=== PATIENT | male | born 1940 | race Caucasian/White ===

== ENCOUNTER 2023-06-22 20:42 | Emergency (ER) | payer MEDICARE, OTHER, SELFPAY ==
--- NOTE | 2023-06-22 20:52 | ED.GENMED ---
History of Present Illness
General
Chief Complaint: Cardiac Symptoms
Source: ambulance crew and assisted
Exam Limitations: none
Time Seen by Provider: 06/22/23 20:51
Nursing documentation reviewed up to this point in time: agreed with
History of Present Illness
History of Present Illness:
83-year-old male presents emergency department in cardiac arrest. He was found unresponsive at assisted. EMS shocked in V-fib 4 times and gave 10 rounds of epinephrine during ACLS and CPR, and also intubated. Patient arrives with CPR in
progress, last rhythm asystole. Lidocaine 100 mg IO given.
Phy Exam
Physical Exam
Physical Exam:
CODE EXAM:
VITAL SIGNS: No palpable blood pressure, no pulses, no respiration.
GENERAL EXAM: Mottled
EYES: Pupils fixed
ENT: Patient intubated
NECK: No venous distention
RESPIRATORY: Equal breath sounds
CARDIAC: Absent heart sounds, automatic chest compression device in place
VASCULAR: Absent pulses
ABDOMEN: Soft no masses
GUAIAC: Not done
MUSCULOSKELETAL: Unable to evaluate strength
EXTREMITIES: No edema or contractures, IO right proximal tibia
SKIN: No rash
PSYCH: Mood, affect unable to evaluate
Course
Orders/Labs/Results
Orders:
Orders
06/22/23 20:43
EPINEPHrine [Adrenalin 1 mg/10 ml] 1 mg .ROUTE .STK-MED ONE
Vital Signs
Initial and Last Documented VS:
Initial Vital Signs
Pulse Resp Pulse Ox
0 0 0
06/22/23 20:43 06/22/23 20:43 06/22/23 20:43
Last Documented Vital Signs
Pulse Resp Pulse Ox
0 0 0
06/22/23 20:43 06/22/23 20:43 06/22/23 20:43
MDM/Problems Addressed
Differential Diagnosis Includes:
Arrhythmia, cardiac arrest, ACS
MDM/Problems Addressed:
83-year-old male with cardiac arrest, limited medical information available. Patient was in ventricular fibrillation and then asystole. Attempting to find contact information for daughter. [employer] contacted.
*Pulse Oximetry
Patient hypoxic: yes
*EKG
Interpreted by ED Provider?: NA
*Treasury Representative Interpretation
Rate: other (asystole)
Interpretation: abnormal
Heart Rate: 0
Rhythm: other (asystole)
*Critical Care Note
Total Time (30-74mins, 75-104mins- exclusive of procedures): Not Applicable
Patient Management
Escalation/DeEscalation of care consider admission/obs:
pt
ED Attending Note
-
Portions of this chart may have been created with voice recognition software.� Occasional wrong word or��sound alike� substitutions may have occurred due to the inherent limitations of voice recognition software.
Discharge Plan
Departure
Patient Disposition:
Date of Disposition: 06/22/23
Time of Disposition: 21:06
Patient with high blood pressure during this ER visit?: No
Discharge Problem:
Cardiac arrest
Interventions
Interventions:
*Risk Screen - Suicide Last Done: 06/22/23 20:43
*Neglect/Abuse Screening Last Done: 06/22/23 20:43
*Nursing Disposition Last Done: 06/22/23 23:40
Discharge Date and Time
Print Language: GRENADIAN
--- NOTE | 2023-06-22 20:57 | EDRN ---
2035 ED charge called respiratory prior to pt. arrival
2042 Pt. arrives intubated (7.0 tube size), entitle reported to be 30-50's
2042 provider at bedside when pt. arrives.
2042 asystole, no pulses noted
2043 pt. bagged
2043 1 mg epi given via R knee IO access
2044 respiratory at bedside
2044 provider notes no pulse
2045 pulse check, rhythm check, asystole noted, no pules
2045 provider calls time of
== END 2023-06-22 23:40 | disposition expired ==
LOC: EMR 20:42
PROVIDERS: EMERGENCY PHYSICIAN Emergency Medicine; FAMILY PHYSICIAN Student in an Organized Health Care Education/Training Program
DX: I46.9 Cardiac arrest, cause unspecified (principal)
CPT/HCPCS: 99283